=== PATIENT | female | born 1980 | race Caucasian/White ===

== ENCOUNTER 2016-12-16 23:33 | Emergency (ER) | payer MEDICAID ==
[~2016-12-16] VITALS: Ht 149.9 cm; Wt 52.5 kg
[2016-12-16 23:36] VITALS: Ht 149.9 cm; Wt 52.5 kg
[2016-12-17] MEDS ORDERED: BEN25 PO (03:58)
[2016-12-17] MEDS ORDERED: METHYLPREDNISOLONE 125 MG INJ IM ONE (04:00)
[2016-12-17] MEDS ORDERED: DIPHENHYDRAMINE 25 MG CAP PO ONE (04:00)
[2016-12-17 04:17] VITALS: BP 118/66; PULSE 70; RESP 18; TEMP 98.3
--- NOTE | 2016-12-20 09:15 | ERD ---
ER Documentation Chief Complaint Date/Time DATE: 12/20/16 TIME: 09:08 Chief Complaint RASH ON BACK AND SHOULDERS SINCE SUNDAY HPI This is a 35-year-old female presents to the ER with a rash on her back and shoulders that occurred after she was in a pool on Sunday. Patient states that she was out in the sun and believes that she developed a rash, however she noticed that she was starting to develop a little blisters and became worried. Area is very itchy and painful. She denies any fevers or chills. She applied aloe vera to the area which helped. ROS 12 point review of systems was done, all negative except per HPI. Medications Home Meds Active Scripts Diphenhydramine Hcl* (Benadryl*) 25 Mg Cap, 25 MG PO Q6, #30 CAP Prov:CATHI LEE Ish 12/17/16 Allergies Allergies: Coded Allergies: No Known Drug Allergies (Verified Allergy, Unknown, 12/17/16) PMhx/Soc Medical and Surgical Hx: pt denies Medical Hx, pt denies Surgical Hx History of Surgery: No Anesthesia Reaction: No Hx Neurological Disorder: No Hx Respiratory Disorders: No Hx Cardiac Disorders: No Hx Psychiatric Problems: No Hx Miscellaneous Medical Probl: No Hx Alcohol Use: No Hx Substance Use: No Hx Tobacco Use: No Smoking Status: Never smoker Physical Exam Vitals Vital Signs Date Time Temp Pulse Resp B/P Pulse Ox O2 Delivery O2 Flow Rate FiO2 12/17/16 04:17 98.3 70 18 118/66 100 Room Air 12/16/16 23:36 98.9 76 18 121/76 100 Physical Exam GENERAL: The patient is well developed and appropriate for usual state of health , in no apparent distress. HEENT: Atraumatic. CHEST: Clear to auscultation bilaterally. There are no rales, wheezes or rhonchi. NEURO: Alert and oriented. SKIN: patient has a sunburn to her back and shoulders with blistering Results 24 hrs Current Medications Medications (Trade) Dose Ordered Sig/Chelsi Route PRN Reason Start Time Stop Time Status Last Admin Dose Admin Diphenhydramine HCl (Benadryl) 25 mg ONCE ONCE PO 12/17/16 04:00 12/17/16 04:01 DC 12/17/16 03:54 Methylprednisolone Sodium Succinate (Solu-Medrol) 125 mg ONCE ONCE IM 12/17/16 04:00 12/17/16 04:01 DC 12/17/16 03:54 Procedures/MDM Differential Diagnosis: dermatitis, allergic urticaria, viral exanthem, insect bite, fungal infectio ,viral exanthem, hand foot mouth disease, impetigo, cellulitis, abscess, viviane tish syndrome, meningocemia, necrotizing fasciitis. This is a 35-year-old female presents to the ER with a rash to her back and shoulders appears to be a sunburn which has began to blister. I do not believe that this is a third-degree burn and there is no signs of infection. Patient is afebrile and well-appearing. Patient is to follow-up with her primary care doctor within 1-2 days return to ER sooner if symptoms worsen. My medical decision making shared with the patient she understands and agrees with plan. Departure Diagnosis: Primary Impression: Sunburn Condition: Stable Patient Instructions: Sunburn Additional Instructions: Call your primary care doctor TOMORROW for an appointment during the next 1-2 days.See the doctor sooner or return here if your condition worsens before your appointment time. CATHI LEE Dec 20, 2016 09:15
== END 2016-12-17 04:18 | disposition home or self-care (01) ==
LOC: FTE 23:33
DX: L55.1 Sunburn of second degree (principal)
CPT/HCPCS: J2930; Z7610; 96372